=== PATIENT | female | born 1970 | race Two or more races ===

== ENCOUNTER 2017-04-25 16:20 | Emergency (ER) | payer OTHER ==
[~2017-04-25] VITALS: Ht 160 cm; Wt 63.5 kg
[2017-04-25 16:56] VITALS: BP 121/76
== END 2017-04-25 18:00 | disposition home or self-care (01) ==
LOC: ER 16:23
DX: Z48.00 Encounter for change or removal of nonsurgical wound dressing (principal)
CPT/HCPCS: A4606; Z7610